=== PATIENT | female | born 1935 ===

== ENCOUNTER → 2017-07-10 | Day surgery (SDC) | payer OTHER ==
[2017-07-01 09:02] VITALS: Ht 157.5 cm; Wt 71.8 kg
[~2017-07-10] VITALS: Ht 157.5 cm; Wt 71.8 kg
[~2017-07-10] MED LIST: ASPI81TA28 PO; ATROPINE SULFATE 0.1 MG/ML 5ML SYR IV PRN; CALC600T9 PO; CALC625T13 PO; CLB/200 PO; EpHEDrine SULFATE INJ 50 MG/ML AMP IV PRN; FENTANYL CITRATE INJ 50 MCG/1 ML 2 ML VIAL ONE; GLC/500 PO; GLIM2TAB2 PO; HYDR12.55 PO; HYDROCODONE/ACETAMOPHEN 5/325MG TAB PO PRN; LACTATED RINGER'S 1000ML 1,000 ML IV SCH; LATA0.5S OPB; LIDOCAINE HCL 2% 2 ML VIAL (20MG/ML) ONE; LNX125 PO; METO-217 PO; MULT-506 PO; OFLOXACIN 0.3% OP SOLN 5 ML BTL ONE; PRAV20TA PO; PRLSR20 PO; PROPOFOL IV EMULSION 10 MG/ML 20 ML VIAL IV ONE
--- NOTE | 2017-07-10 08:24 | History & Physical Bridge - [place] ---
H&P Re-Evaluation Bridge Note: I have examined the patient, reviewed the History & Physical and in the interval since the performance of the History & Physical I have noted the following changes of clinical significance: No changes noted
--- NOTE | 2017-07-10 09:04 | [facility] Operative Report ---
Operative Report Operative Date Jul 10, 2017. Pre-Operative Diagnosis RIGHT MIXED HEARING LOSS, EUSTACHIAN TUBE DYSFUNCTION, SEROUS OTITIS MEDIA Post-Operative Diagnosis SAME Procedure(s) Performed RIGHT MYRINGOTOMY AND T-TUBE PLACEMENT Surgeon GABBY [employer] Surgeon(s) NONE Estimated Blood Loss 0 Findings MILD R SAMIR Specimens NONE I attest to the content of the Intraoperative Record and any orders documented therein. Any exceptions are noted below.
--- NOTE | 2017-07-10 09:06 | Discharge Instructions ---
Discharge Instructions Date of Service Jul 10, 2017. Admission Reason for Admission: Simple Chronic Serous O.m. Right Ear, Mixed H/L Discharge Discharge Diagnosis / Problem: SAME Discharge Goals Goal(s): Therapeutic intervention Activity Recommendations Activity Limitations: as noted below DRY RIGHT EAR PRECAUTIONS WHILE TUBE IN PLACE; NO NOSE BLOWING FOR 2 WEEKS . Current Hospital Diet Patient's current hospital diet: Discharge Diet Recommended Diet: Regular Diet Procedures Procedures Performed: RIGHT MYRINGOTOMY AND T-TUBE PLACEMENT Pending Studies Studies pending at discharge: no Medical Emergencies . Who to Call and When: Medical Emergencies: If at any time you feel your situation is an emergency, please call 911 immediately. . Non-Emergent Contact Non-Emergency issues call your: Surgeon . . "Provider Documentation" section prepared by Epifanio Suggs. . VTE Core Measure Inpt VTE Proph given/why not?: SCD's
--- NOTE | 2017-07-10 09:25 | OPERATIVE REPORT ---
DATE OF OPERATION: 07/10/2017 PREOPERATIVE DIAGNOSES: 1. Right serous otitis media. 2. Right mixed hearing loss. 3. Right eustachian tube dysfunction. POSTOPERATIVE DIAGNOSES: 1. Right serous otitis media. 2. Right mixed hearing loss. 3. Right eustachian tube dysfunction. PROCEDURES: Right myringotomy and T-tube placement. SURGEON: Dr. Suggs. ANESTHESIA: General mask with IV sedation. ESTIMATED BLOOD LOSS: Zero. FINDINGS: 1. Mild right serous middle ear effusion. 2. Right tympanic membrane sclerosis and retraction. SPECIMENS: None. COMPLICATIONS: None. INDICATIONS FOR THE PROCEDURE: The patient is an 82-year-old female with a history of recurrent right serous otitis media who has undergone multiple right myringotomy and tube placements by Dr. Oleary in the [facility] in the past with early extrusion of tubes and the patient has had recurrent serous otitis media which has been refractory to maximal medical therapy including systemic steroids. She presents for the above-mentioned procedure on an outpatient elective basis. DETAILS OF PROCEDURE: After informed consent has been obtained from the patient, the patient was wheeled to the operating room and placed on table in supine position. Monitors were placed. After induction of general anesthesia via mask induction and IV sedation, the patient's head was gently turned to the left and a speculum was inserted into the right external ear canal. The operating microscope was wheeled in and used to inspect the ear. Myringotomy knife was used to make a radial incision in the anterior inferior quadrant of the tympanic membrane and the middle ear space was suctioned free of a mild serous middle ear effusion. A silicone Newby T-tube was then placed with the T-tube steel box toe inserter. Floxin drops were instilled into the middle ear space and a cotton ball was placed into the conchal bowl. This marked the end of the case. The patient tolerated the procedure well. There were no apparent complications. The patient was transferred to the recovery room in stable condition. I attest to the content of the Intraoperative Record and any orders documented therein. Any exception s are noted below.
[2017-07-10 10:14] VITALS: BP 170/78; PULSE 59; O2SAT 98
--- NOTE | 2017-07-10 10:14 | Anesthesiology Progress Note ---
Anesthesia Post Op Note Date & Time Jul 10, 2017 at 10:14 Vital Signs Pain Intensity: 0 Vital Signs Past 12 Hours Date Time Temp Pulse Resp B/P (MAP) Pulse Ox O2 Delivery O2 Flow Rate FiO2 07/10/17 09:43 36.6 63 16 132/81 (98) 95 Room Air 07/10/17 09:39 60 0 97 07/10/17 09:39 60 0 07/10/17 09:38 66 11 98 07/10/17 09:38 64 11 07/10/17 09:38 36.9 61 20 147/84 97 Room Air 07/10/17 09:36 147/84 07/10/17 09:33 65 14 96 07/10/17 09:33 65 14 07/10/17 09:32 69 17 97 07/10/17 09:32 68 17 07/10/17 09:31 141/73 07/10/17 09:28 63 10 07/10/17 09:28 62 10 97 07/10/17 09:26 149/78 07/10/17 09:23 64 7 100 07/10/17 09:23 65 7 07/10/17 09:22 65 14 100 07/10/17 09:22 65 14 07/10/17 09:21 145/71 07/10/17 09:18 63 20 100 07/10/17 09:18 63 20 07/10/17 09:16 138/74 07/10/17 09:13 67 6 07/10/17 09:13 66 6 99 07/10/17 09:11 149/78 07/10/17 09:10 150/76 07/10/17 09:08 36.5 74 20 150/76 100 Nasal Cannula 6 07/10/17 09:08 68 98 07/10/17 09:08 68 07/10/17 07:43 36.4 65 16 176/81 (112) 96 Room Air Notes Mental Status: alert / awake / arousable, participated in evaluation Pt Amnestic to Procedure: Yes Nausea / Vomiting: adequately controlled Pain: adequately controlled Airway Patency, RR, SpO2: stable & adequate BP & HR: stable & adequate Hydration State: stable & adequate Anesthetic Complications: no major complications apparent
== END | disposition home or self-care (01) ==
LOC: X.SURG 07:06
DX: H65.21 Chronic serous otitis media, right ear (principal); H90.71 Mixed conductive and sensorineural hearing loss, unilateral, right ear, with unrestricted hearing on the contralateral side; H69.81 Other specified disorders of Eustachian tube, right ear; I10 Essential (primary) hypertension; E78.00 Pure hypercholesterolemia, unspecified; E11.9 Type 2 diabetes mellitus without complications; R00.0 Tachycardia, unspecified; H40.9 Unspecified glaucoma; Z79.82 Long term (current) use of aspirin; Z79.84 Long term (current) use of oral hypoglycemic drugs; Z79.899 Other long term (current) drug therapy